=== PATIENT | male | born 1990 | race Caucasian/White ===

== ENCOUNTER 2017-12-16 17:23 | Emergency (ER) | payer MEDICAID ==
[~2017-12-16] VITALS: Ht 177.8 cm; Wt 86.2 kg
[2017-12-16] MEDS ORDERED: NACL 0.9% 1,000 ML IV ONE (17:25)
--- NOTE | 2017-12-16 17:25 | NUR ---
PT BIBA FOR PREBOOK WITH NECK AND SHOULDER PAIN TO BED 6
[2017-12-16 17:26] VITALS: BP 141/96
[2017-12-16] MEDS ORDERED: METOPROLOL 5 MG/5 ML VIAL IVP ONE (17:40)
[2017-12-16 18:29] VITALS: BP 127/70
--- NOTE | 2017-12-16 18:29 | NUR ---
IV removed, catheter intact and site benign. Applied folded 4x4 gauze and tape to stop bleeding.
--- NOTE | 2017-12-16 18:29 | NUR ---
Patient discharged with v/s stable. Written and verbal after care instructions given and explained. Patient verbalized understanding. Discharge to custody of [facility]. All questions addressed prior to discharge. Advised to follow up with PMD.
== END 2017-12-16 18:29 ==
LOC: MED 17:23
DX: S16.1XXA Strain of muscle, fascia and tendon at neck level, initial encounter (principal); I10 Essential (primary) hypertension; R00.0 Tachycardia, unspecified; Y04.0XXA Assault by unarmed brawl or fight, initial encounter; Y93.89 Activity, other specified; Y92.512 Supermarket, store or market as the place of occurrence of the external cause; Y99.8 Other external cause status
CPT/HCPCS: 72040; 96374; 99284; J3490